=== PATIENT | female | born 1970 | race Caucasian/White ===

== ENCOUNTER 2024-12-07 19:09 | Emergency (ER) | payer MEDICAID ==
[~2024-12-07] VITALS: Ht 157.5 cm; Wt 65.3 kg
[2024-12-07] MEDS: acetaminophen 325mg tablet PO ONE (20:34)
[2024-12-07] MEDS: ketorolac trometh 15mg/ml vial 15 MG/ML ML IM ONE (21:30)
[2024-12-07 21:31] VITALS: BP 134/88; PULSE 88; RESP 18; TEMP 98.6; O2SAT 97
== END 2024-12-07 21:33 | disposition home or self-care (01) ==
LOC: ER 19:10
DX: M79.604 Pain in right leg (principal)
CPT/HCPCS: 96372; 99283; J1885